=== PATIENT | male | born 1970 | race Caucasian/White ===

== ENCOUNTER 2020-02-24 17:27 | Inpatient (IN) | payer OTHER ==
[2020-02-24 18:41] VITALS: BMI 23.1
--- NOTE | 2020-02-24 18:52 | BHS.RME ---
Substance Use & Tx History - Substance Use History Heroin Substance amount: 6-7 bags Frequency of use: Daily Substance route: Injection (ex: intravenous or skin popping) Date of Last Use: 02/22/20 (Started at 15.) Nicotine Substance amount: 20 Frequency of use: Daily Substance route: Smoking Date of Last Use: 02/24/20 (Started at 15.) Physical/Psych/Mental Status - Behavior Eye Contact: Normal - Cooperativeness Cooperativeness: Cooperative - Thinking Thought Processes: Goal Directed - Physical Health Problems Is patient presently having any pain?: No Does patient presently have any injuries (include location): No Does patient currently have a fever: No COWS - Scale Resting Pulse: 1= [place] 81-100 Sweatin= No chills or Flushing Restless Observation: 0= Sits Still Pupil Size: 2= Moderately Dilated Bone or Joint Aches: 0= None Runny Nose/ Eye Tearin= None GI Upset > 30mins: 0= None Tremor Observation: 0= None Yawning Observation: 0= None Anxiety or Irritability: 0= None Goose Flesh Skin: 0=Smooth Skin COWS Score: 3
--- NOTE | 2020-02-24 19:24 | HP ---
COWS - Scale Resting Pulse: 1= [place] 81-100 Sweatin= No chills or Flushing Restless Observation: 0= Sits Still Pupil Size: 2= Moderately Dilated (Pupils = 5 mm) Bone or Joint Aches: 0= None Runny Nose/ Eye Tearin= None GI Upset > 30mins: 0= None Tremor Observation: 0= None Yawning Observation: 0= None Anxiety or Irritability: 0= None Goose Flesh Skin: 0=Smooth Skin COWS Score: 3 CIWA Score - Admission Criteria OASAS Guidelines: Admission for Medically Managed Detox: Requires at least one of the followin. CIWA greater than 12 2. Seizures within the past 24 hours 3. Delirium tremens within the past 24 hours 4. Hallucinations within the past 24 hours 5. Acute intervention needed for co occurring medical disorder 6. Acute intervention needed for co occurring psychiatric disorder 7. Severe withdrawal that cannot be handled at a lower level of care (continued vomiting, continued diarrhea, abnormal vital signs) requiring intravenous medication and/or fluids 8. Admission ROS [facility] Chief Complaint: "HERE TO STOP USING" Allergies/Adverse Reactions: Allergies Allergy/AdvReac Type Severity Reaction Status Date / Time No Known Allergies Allergy Verified 02/24/20 18:54 History of Present Illness: 49 yo presents seeking detox, but last used 3 days ago and had minimal withdrawal symptoms. Does not meet criteria for detox - will admit to Rehab, after collecting results for Rapid COVID. Denies seizures or blackouts, Last overdose 2 years ago. Substance Use History Heroin Substance amount: 6-7 bags Frequency of use: Daily Substance route: Injection (ex: intravenous) Date of Last Use: 02/22/20 (Started at 15.) Recent use x 1 year. Nicotine Substance amount: 20 Frequency of use: Daily Substance route: Smoking Date of Last Use: 02/24/20 (Started at 15.) PMHx: DM II; MHHx: Depression. On meds - intermittent compliance. Denies thoughts of harming self or others. SHx: Domiciled. SSI. Denies legal issues. Patient Name: Bernardino Ramsey Date: 1970 Address: [place] [address] Sex: Male Rx Written Rx Dispensed Drug Quantity Days Supply Prescriber Name Payment Method Dispenser 03/31/2019 03/31/2019 buprenorphine-naloxone 8-2 mg sl film 21 7 [address] [facility] 03/27/2019 03/27/2019 buprenorphine-naloxone 8-2 mg sl film 15 5 [address] [facility] 03/10/2019 03/10/2019 buprenorphine-naloxone 8-2 mg sl film 21 7 [address] [facility] 03/03/2019 03/03/2019 buprenorphine-naloxone 8-2 mg sl film 21 7 [address] [facility] 02/24/2019 02/24/2019 buprenorphine-naloxone 8-2 mg sl film 21 7 [address] [facility] Exam Limitations: No Limitations - Ebola screening Have you traveled outside of the country in the last 21 days: No (Denies COVID exposure) Have you had contact with anyone from an Ebola affected area: No Have you been sick,other than usual withdrawal symptoms: No Do you have a fever: No - Review of Systems Constitutional: Chills, Changes in sleep (Difficulty falling asleep.), Weight Stable EENT: reports: Blurred Vision, Dental Problems (Missing teeth, No ddental pain.) Respiratory: reports: No Symptoms reported Cardiac: reports: No Symptoms Reported GI: reports: No Symptoms Reported : reports: No Symptoms Reported Musculoskeletal: reports: No Symptoms Reported Integumentary: reports: No Symptoms Reported Neuro: reports: No Symptoms reported Endocrine: reports: No Symptoms Reported Hematology: reports: No Symptoms Reported Psychiatric: reports: Judgement Intact, Mood/Affect Appropiate, Orientated x3, Agitated, Anxious, Depressed ( Denies thoughts of harming self or others.) Patient History - PPD History Previous Implant?: Yes Documented Results: Negative w/o proof Implanted On Prior R Admission?: No PPD to be Administered?: Yes - Smoking Cessation Smoking history: Current every day smoker Have you smoked in the past 12 months: Yes Aproximately how many cigarettes per day: 20 Hx Chewing Tobacco Use: No Initiated information on smoking cessation: Yes 'Breaking Loose' booklet given: 02/24/20 - Substance & Tx. History Hx Alcohol Use: No Hx Substance Use: Yes Substance Use Type: Heroin Hx Substance Use Treatment: Yes (detox, rehab, past suboxone) Admission Physical Exam BHS - Vital Signs Vital Signs: Vital Signs - 24 hr 02/24/20 18:39 Temperature 97.7 F Pulse Rate 81 Respiratory 18 Rate Blood Pressure 117/74 - Physical General Appearance: Yes: Nourished HEENTM: Yes: Hearing grossly Normal, Normocephalic, Normal Voice, KEVIN (Pupils = 5 mm), Pharynx Normal Respiratory: Yes: Lungs Clear, Normal Breath Sounds, No Respiratory Distress Neck: Yes: No masses,lesions,Nodules, Supple Breast: Yes: Breast Exam Deferred Cardiology: Yes: Regular Rhythm, Regular Rate Abdominal: Yes: Normal Bowel Sounds, Non Tender, Flat, Soft Genitourinary: Yes: Within Normal Limits Back: Yes: Normal Inspection Musculoskeletal: Yes: full range of Motion, Gait Steady Extremities: Yes: Normal Capillary Refill, Normal Range of Motion Neurological: Yes: Fully Oriented, Alert, Motor Strength 5/5, Normal Response Integumentary: Yes: Normal Color, Warm, Track Lepe (Track lepe antecubital areas w/o increased warmth or erythema) Lymphatic: Yes: Within Normal Limits - Diagnostic (1) Moderate opioid use disorder, in early remission Current Visit: Yes Status: Acute (2) Nicotine dependence, unspecified, uncomplicated Current Visit: Yes Status: Chronic Qualifiers: Nicotine product type: cigarettes Qualified Code(s): F17.210 - Nicotine dependence, cigarettes, uncomplicated (3) Diabetes mellitus Current Visit: Yes Status: Chronic Qualifiers: Diabetes mellitus type: type 2 Diabetes mellitus rat exterminator insulin use: unspecified fpc insulin use status Diabetes mellitus complication status: without complication Qualified Code(s): E11.9 - Type 2 diabetes mellitus without complications Cleared for Admission [facility] - Detox or Rehab Claeared for Rehab Admission: Yes Urine Drug Screen - Test Device Lot number: [id number] Expiration date: 08/29/21 - Control Is test valid?: Yes - Results Drug screen NEGATIVE: No Urine drug screen results: JING-Cocaine, FEN-Fentanyl, MOP-Opiates Inpatient Rehab Admission - Rehab Decision to Admit Inpatient rehab admission?: Yes - Initial Determination Are CD services needed?: Yes Free of communicable disease: Yes Not in need of hospitalization: Yes - Rehab Admission Criteria Previous failed treatment: Yes Poor recovery environment: Yes Comorbidities: Yes Lacks judgement: No Patient is meeting Inpatient Rehab admission criteria:: Yes
[2020-02-24] MEDS ORDERED: LOPERAMIDE HCL 2 MG CAPSULE PO PRN (22:38)
[2020-02-24] MEDS ORDERED: P-EPHED 60MG/TRIPROLIDI 2.5MG TABLET PO PRN (22:38)
[2020-02-24] MEDS ORDERED: ACETAMINOPHEN 325 MG TABLET (FP) PO PRN (22:38)
[2020-02-24] MEDS ORDERED: MAGNESIUM HYDROX 2400MG/30ML ORAL SUSPENSION 30 ML CUP PO PRN (22:38)
[2020-02-24] MEDS ORDERED: guaiFENesin 200 MG/10 ML 10 ML UNIT-DOSE CUPS PO PRN (22:38)
[2020-02-24] MEDS ORDERED: MAG HYDROX/AL HYDROX/SIMETH 30 ML UNIT-DOSE CUP PO PRN (22:38)
[2020-02-24] MEDS ORDERED: NICOTINE POLACRILEX 2 MG GUM BUC PRN (22:38)
[2020-02-24] MEDS ORDERED: IBUPROFEN 400 MG TABLET (FP) PO PRN (22:38)
[2020-02-24] MEDS ORDERED: MAGNESIUM CITRATE 300 ML BOTTLE PO PRN (22:38)
[2020-02-24] MEDS ORDERED: hydrOXYzine PAMOATE 25 MG CAPSULE (FP) PO PRN (22:38)
[2020-02-25] MEDS: MELATONIN 5 MG TABLETS PO SCH ×2 (00:17→22:11)
[2020-02-25] MEDS ORDERED: INSULIN SLIDING SCALE (NOVOLOG) 1 VIAL SQ SCH (07:00)
[2020-02-25] MEDS ORDERED: cloNIDine HCL 0.1 MG TABLET PO ONE (07:22)
[2020-02-25] MEDS ORDERED: cloNIDine HCL 0.1 MG TABLET PO PRN (07:24)
--- NOTE | 2020-02-25 07:25 | PN ---
S Progress Note Note: CLONIDINE O.1 MG PO NOW THEN Q6H PRN VISTARIL 50 MG PO NOW THEN PRN Q8 H FOR DELAYED OPI WITHDRAWAL SX'S TIGAN 200 MG IM Q8H PRN Vital Signs Temperature 97.7 F 02/25/20 06:53 Pulse Rate 66 02/25/20 06:53 Respiratory Rate 18 02/25/20 06:53 Blood Pressure 140/76 02/25/20 06:53 O2 Sat by Pulse Oximetry (%) 96 02/25/20 06:53
[2020-02-25] MEDS: TRIMETHOBENZAMIDE HCL 200MG/2ML INJ IM PRN ×2 (07:48→17:16)
[2020-02-25] MEDS: INSULIN (LEVEMIR) 100 UNITS/ML UNITS SQ SCH (07:50)
[2020-02-25] MEDS: INSULIN SLIDING SCALE (NOVOLOG) 1 VIAL SQ SCH ×4 (07:53→22:13)
[2020-02-25] MEDS: metFORMIN HCL 500 MG TABLET (FP) PO SCH ×2 (10:33→16:47)
[2020-02-25] MEDS: hydrOXYzine PAMOATE 50 MG CAPSULE (FP) PO ONE ×2 (10:33→22:07)
[2020-02-25] MEDS: LISINOPRIL 5 MG TABLET PO SCH (10:33)
[2020-02-25] MEDS: PRENATAL VITAMINS W/ FOLIC ACID TABLET (FP) PO SCH (10:34)
[2020-02-25] MEDS: NICOTINE 21 MG/24 HOURS TOPICAL PATCH TD SCH (10:34)
[2020-02-25] MEDS ORDERED: metFORMIN HCL 500 MG TABLET (FP) ONE (16:39)
[2020-02-25] MEDS ORDERED: hydrOXYzine PAMOATE 50 MG CAPSULE (FP) ONE (16:48)
[2020-02-25] MEDS ORDERED: TRIMETHOBENZAMIDE HCL 200MG/2ML INJ IM ONE (17:07)
--- NOTE | 2020-02-25 21:41 | EKG ---
Test Reason : Blood Pressure : / mmHG Vent. Rate : 058 BPM Atrial Rate : 058 BPM P-R Int : 126 ms QRS Dur : 082 ms QT Int : 484 ms P-R-T Axes : -26 044 043 degrees QTc Int : 475 ms SINUS BRADYCARDIA OTHERWISE NORMAL ECG NO PREVIOUS ECGS AVAILABLE Confirmed by SHAWNA KWOK MD ([id number]) on 02/25/2020 9:41:04 PM Referred By: Confirmed By:SHAWNA KWOK MD
[2020-02-25] MEDS: THIAMINE HCL 100 MG TABLET (FP) PO SCH (22:20)
[2020-02-26] MEDS ORDERED: INSULIN (LEVEMIR) 100 UNITS/ML UNITS SQ ONE (07:03)
[2020-02-26] MEDS ORDERED: metFORMIN HCL 500 MG TABLET (FP) ONE (07:03)
[2020-02-26] MEDS ORDERED: LISINOPRIL 5 MG TABLET ONE (07:04)
[2020-02-26] MEDS: LISINOPRIL 5 MG TABLET PO SCH (07:07)
[2020-02-26] MEDS: INSULIN (LEVEMIR) 100 UNITS/ML UNITS SQ SCH (07:07)
[2020-02-26] MEDS: metFORMIN HCL 500 MG TABLET (FP) PO SCH ×2 (07:07→17:45)
[2020-02-26] MEDS ORDERED: INSULIN (NOVOLOG) ASPART 100 UNITS/ML 10ML VIAL ONE (07:11)
[2020-02-26] MEDS: INSULIN SLIDING SCALE (NOVOLOG) 1 VIAL SQ SCH ×2 (07:16→11:42)
[2020-02-26] MEDS: PRENATAL VITAMINS W/ FOLIC ACID TABLET (FP) PO SCH (09:47)
[2020-02-26] MEDS: NICOTINE 21 MG/24 HOURS TOPICAL PATCH TD SCH (09:47)
[2020-02-26] MEDS ORDERED: ONDANSETRON *ODT* 4 MG TABLET SL ONE (11:25)
--- NOTE | 2020-02-26 11:29 | PN ---
[facility] Progress Note Note: Pt is a 49 y/o male with a hx of VAUGHN-Heroin admitted to rehab through [facility] on 02/24/20. Pt c/o withdrawal sx-nausea/vomiting, chills. As per I-STOP online document in H/P, pt was on Suboxone 8mg/2mg sl. Pt was seen in bed in position, declined to speak to this commercial underwriter and her nurse Jess Chapman when both went to encourage pt to do BGM which he refused to do at 11:30 a.m today. Pt insisted on not doing it. This commercial underwriter called [facility] at [phone] listed in pt's chart to verify pt's medications. Pharmacist reports that pt last visited with them in March 2019 and verified last medications- suboxone(see I-STOP), Basaglar, Lisinopril, Metformin januvia on their system as same as currently being given. Home Medication List Medication Instructions Recorded Confirmed Type Buprenorphine/Naloxone [Suboxone 8 1 each SL TID 02/24/20 02/24/20 History mg/2Mg Sl Film -] Insulin Glargine,Hum.rec.anlog 12 unit SQ AM 02/24/20 02/24/20 History [Basaglar Kwikpen U-100] Insulin Lispro [Admelog Solostar] 12 unit SQ TID 02/24/20 02/24/20 History Lisinopril 5 mg PO AM 02/24/20 02/24/20 History Metformin HCl [Glucophage] 1,000 mg PO BID 02/24/20 02/24/20 History Multivit,Calc,Mins/Iron/Folic 1 tab PO AM 02/24/20 02/24/20 History [Therapeutic-M Tablet] Multivitamin 1 each PO AM 02/24/20 02/24/20 History Quetiapine Fumarate [Seroquel -] 400 mg PO HS 02/24/20 02/24/20 History Sertraline HCl [Zoloft] 200 mg PO AM 02/24/20 02/24/20 History Sitagliptin Phosphate [Januvia] 100 mg PO ONCE 02/24/20 02/24/20 History Patient Name: Bernardino Ramsey Date: 1970 Address: [place] [address] Sex: Male Rx Written Rx Dispensed Drug Quantity Days Supply Prescriber Name Payment Method Dispenser 03/31/2019 03/31/2019 buprenorphine-naloxone 8-2 mg sl film 21 7 Jorge Luis Juarez MD [facility] 03/27/2019 03/27/2019 buprenorphine-naloxone 8-2 mg sl film 15 5 Jorge Luis Juarez MD [facility] 03/10/2019 03/10/2019 buprenorphine-naloxone 8-2 mg sl film 21 7 Jorge Luis Juarez MD [facility] 03/03/2019 03/03/2019 buprenorphine-naloxone 8-2 mg sl film 21 7 Jorge Luis Juarez MD [facility] 02/24/2019 02/24/2019 buprenorphine-naloxone 8-2 mg sl film 21 7 Jorge Luis Juarez MD [facility] Below is U-tox on admission on 02/24/20: Drug screen NEGATIVE: No Urine drug screen results: JING-Cocaine, FEN-Fentanyl, MOP-Opiates PMHx:DM(On multiple diabetic medications) Psych Hx:depression Vital Signs - 24 hr 02/25/20 02/26/20 14:26 07:01 Temperature 98.4 F Pulse Rate 53 L Respiratory 18 Rate Blood Pressure 131/75 O2 Sat by Pulse 98 98 Oximetry (%) Laboratory Tests 02/24/20 02/24/20 02/25/20 20:53 21:48 12:45 POC Glucometer 220 320 SARS-CoV-2 (PCR) Negative 02/25/20 02/25/20 02/26/20 16:45 22:04 07:06 POC Glucometer 318 307 304 SARS-CoV-2 (PCR) Alert o x 3 nad oob ambulating with steady gait(but mostly in bed this shift) Rehab pt w/s loss of appetite VAUGHN-Opiates Increase po fluids as tolerated -Gingerale and Glucerna as directed monitor pt and maintain safety follow up with counselor for CD aftercare planning Follow up with pt again when he is ready to talk to see if pt wants to be re started on suboxone MAT. Admission Labs re-ordered today for tomorrow(original order seen cancelled in the system for an unknown reason). Pt refused BGM x 2 @ 11:30am and 4:30pm today/poor po food intake-Decreased Metformin 500 mg po BIDAC. Addendum:Spoke with pt at end of shift and encouraged to cooperate with nurses with BGM monitoring. D/w pt about Suboxone restart and pt is interested. will follow up in am.
[2020-02-26] MEDS ORDERED: BUPRENORPHINE/NALOXONE 8 MG/2 MG FILM PACKET SL ONE (18:55)
--- NOTE | 2020-02-26 19:05 | PN ---
BHS Progress Note Note: 49 y.o. male w/ opioid dependence , reports nausea, vomiting , chills , abdominal cramps , anxiety . COWS = 9 Reports prior participation > 1 yr ago in Buprenorphine program , planning to return after d/c from rehab . Vital Signs - 24 hr 02/26/20 02/26/20 07:01 17:10 Temperature 98.4 F 98.2 F Pulse Rate 53 L 58 L Respiratory 18 18 Rate Blood Pressure 131/75 125/70 O2 Sat by Pulse 98 98 Oximetry (%) pt irritable, in bed in position , extraneous LE movement noted . P : Discussed methadone detox vs maintenance . Pt agreeable to start Buprenorphine Suboxone 8/2 mg x once Tigan i.m. x once Nursing to monitor for withdrawal symptoms and notify medical of any changes .
[2020-02-26] MEDS: TRIMETHOBENZAMIDE HCL 200MG/2ML INJ IM PRN (19:14)
[2020-02-26] MEDS: THIAMINE HCL 100 MG TABLET (FP) PO SCH (21:51)
[2020-02-26] MEDS: MELATONIN 5 MG TABLETS PO SCH (21:51)
[2020-02-26] MEDS: METHOCARBAMOL 500 MG TABLET PO PRN (21:53)
[2020-02-26 23:31] LABS: PH,URINE 5.5 (5.0-8.0); URINE APPEARANCE Cloudy; URINE BILIRUBIN Negative (NEGATIVE); URINE COLOR Pink; URINE GLUCOSE (UA) 3+ (NEGATIVE); URINE KETONE Trace (NEGATIVE); URINE LEUK ESTERASE Negative (NEGATIVE); URINE NITRITE Negative (NEGATIVE); URINE PROTEIN Negative (NEGATIVE); URINE UROBILINOGEN 0.2 mg/dL (0.2-1.0)
[2020-02-27] MEDS: metFORMIN HCL 500 MG TABLET (FP) PO SCH ×3 (07:05→16:31)
[2020-02-27] MEDS: LISINOPRIL 5 MG TABLET PO SCH (07:05)
[2020-02-27] MEDS: TRIMETHOBENZAMIDE HCL 200MG/2ML INJ IM PRN (07:34)
--- NOTE | 2020-02-27 10:13 | PN ---
BHS COWS - Scale Resting Pulse: 1= [place] 81-100 Sweatin= Chills/Flushing Restless Observation: 3= Extraneous Movement Pupil Size: 0= Normal to Room Light Bone or Joint Aches: 2= Severe Diffuse Aches Runny Nose/ Eye Tearin= None GI Upset > 30mins: 2= Nausea/Diarrhea (Nausea, no diarrhea, vomiting improved within last 24 hrs.) Tremor Observation of Outstretched Hands: 1= Tremor Ione, Not Seen Yawning Observation: 0= None Anxiety or Irritability: 2=Irritable/Anxious Goose Flesh Skin: 0=Smooth Skin COWS Score: 12 S Progress Note (SOAP) Subjective: Pt was seen yesterday by covering provider Dr. Ochoa and Suboxone 2mg/0.1mg was given once. Pt was evaluated today and he reports he is "a little bit better today". Pt was able to hold conversation today but still agitated and demanded suboxone BLESSING first encounter this shift. Pt will meet with his counselor Raisa for aftercare planning this afternoon. Objective: 02/27/20 12:42 Vital Signs - 24 hr 02/26/20 02/26/20 02/26/20 17:10 19:31 23:58 Temperature 98.2 F Pulse Rate 58 L 95 H Respiratory 18 Rate Blood Pressure 125/70 115/76 O2 Sat by Pulse 98 98 Oximetry (%) 02/27/20 06:43 Temperature 98.2 F Pulse Rate 94 H Respiratory 18 Rate Blood Pressure 114/89 O2 Sat by Pulse 96 Oximetry (%) Laboratory Tests 02/24/20 02/24/20 02/24/20 18:05 20:53 21:48 WBC RBC Hgb Hct MCV MCH MCHC RDW Plt Count MPV Sickle Cell Screen Sodium Potassium Chloride Carbon Dioxide Anion Gap BUN Creatinine Est GFR (CKD-EPI)AfAm Est GFR (CKD-EPI)NonAf POC Glucometer 220 Random Glucose Calcium Total Bilirubin AST ALT Alkaline Phosphatase Total Protein Albumin Urine Color [place] Urine Appearance Cloudy Urine pH 5.5 Ur Specific [place] 1.025 Urine Protein Negative Urine Glucose (UA) 3+ H Urine Ketones Trace Urine Blood Negative Urine Nitrite Negative Urine Bilirubin Negative Urine Urobilinogen 0.2 Ur Leukocyte Esterase Negative Syphilis Serology SARS-CoV-2 (PCR) Negative 02/25/20 02/25/20 02/25/20 12:45 16:45 22:04 WBC RBC Hgb Hct MCV MCH MCHC RDW Plt Count MPV Sickle Cell Screen Sodium Potassium Chloride Carbon Dioxide Anion Gap BUN Creatinine Est GFR (CKD-EPI)AfAm Est GFR (CKD-EPI)NonAf POC Glucometer 320 318 307 Random Glucose Calcium Total Bilirubin AST ALT Alkaline Phosphatase Total Protein Albumin Urine Color Urine Appearance Urine pH Ur Specific [place] Urine Protein Urine Glucose (UA) Urine Ketones Urine Blood Urine Nitrite Urine Bilirubin Urine Urobilinogen Ur Leukocyte Esterase Syphilis Serology SARS-CoV-2 (PCR) 02/26/20 02/26/20 02/27/20 07:06 18:41 07:00 WBC 15.0 H RBC 5.18 Hgb 15.8 Hct 45.1 MCV 87.2 MCH 30.5 MCHC 34.9 RDW 12.8 Plt Count 236 MPV 10.0 Sickle Cell Screen Negative Sodium Potassium Chloride Carbon Dioxide Anion Gap BUN Creatinine Est GFR (CKD-EPI)AfAm Est GFR (CKD-EPI)NonAf POC Glucometer 304 307 Random Glucose Calcium Total Bilirubin AST ALT Alkaline Phosphatase Total Protein Albumin Urine Color Urine Appearance Urine pH Ur Specific [place] Urine Protein Urine Glucose (UA) Urine Ketones Urine Blood Urine Nitrite Urine Bilirubin Urine Urobilinogen Ur Leukocyte Esterase Syphilis Serology SARS-CoV-2 (PCR) 02/27/20 02/27/20 02/27/20 07:00 07:00 07:03 WBC RBC Hgb Hct MCV MCH MCHC RDW Plt Count MPV Sickle Cell Screen Sodium 135 L Potassium 3.7 Chloride 95 L Carbon Dioxide 31 Anion Gap 9 BUN 23.0 H Creatinine 1.0 Est GFR (CKD-EPI)AfAm 101.26 Est GFR (CKD-EPI)NonAf 87.37 POC Glucometer 238 Random Glucose 222 H Calcium 9.7 Total Bilirubin 1.2 H AST 73 H ALT 91 H Alkaline Phosphatase 93 Total Protein 7.5 Albumin 3.3 L Urine Color Urine Appearance Urine pH Ur Specific [place] Urine Protein Urine Glucose (UA) Urine Ketones Urine Blood Urine Nitrite Urine Bilirubin Urine Urobilinogen Ur Leukocyte Esterase Syphilis Serology Non-reactive SARS-CoV-2 (PCR) 02/27/20 11:11 WBC RBC Hgb Hct MCV MCH MCHC RDW Plt Count MPV Sickle Cell Screen Sodium Potassium Chloride Carbon Dioxide Anion Gap BUN Creatinine Est GFR (CKD-EPI)AfAm Est GFR (CKD-EPI)NonAf POC Glucometer 246 Random Glucose Calcium Total Bilirubin AST ALT Alkaline Phosphatase Total Protein Albumin Urine Color Urine Appearance Urine pH Ur Specific [place] Urine Protein Urine Glucose (UA) Urine Ketones Urine Blood Urine Nitrite Urine Bilirubin Urine Urobilinogen Ur Leukocyte Esterase Syphilis Serology SARS-CoV-2 (PCR) Assessment: 02/27/20 12:42 VAUGHN Suboxone MAT Plan: D/W pt will continue with Suboxone 4mg/1mg sl tid and adjust to previous dose of 8 mg/2 mg sl tid if needed. increase po fluids encourage pt with adequate food intake
[2020-02-27] MEDS ORDERED: BUPRENORPHINE/NALOXONE 4 MG/1 MG FILM PACKET SL SCH (10:15)
[2020-02-27 10:26] LABS: HEMATOCRIT 45.1 % (35.4-49); HEMOGLOBIN 15.8 GM/dL (11.7-16.9); MCH 30.5 pg (25.7-33.7); MCHC 34.9 g/dl (32.0-35.9); MEAN CELL VOLUME 87.2 fl (80-96); PLATELET COUNT 236 K/MM3 (134-434); RBC 5.18 M/mm3 (4.00-5.60); RDW 12.8 % (11.9-15.9)
[2020-02-27 10:32] LABS: ALBUMIN 3.3 g/dl (3.4-5.0); CALCIUM 9.7 mg/dL (8.5-10.1); POTASSIUM 3.7 mmol/L (3.5-5.1); TOT PROT 7.5 g/dl (6.4-8.2)
[2020-02-27 10:34] LABS: BILIRUBIN,TOTAL 1.2 mg/dL (0.2-1)
[2020-02-27] MEDS: NICOTINE 21 MG/24 HOURS TOPICAL PATCH TD SCH (11:08)
[2020-02-27] MEDS: PRENATAL VITAMINS W/ FOLIC ACID TABLET (FP) PO SCH (11:08)
[2020-02-27 12:12] LABS: SICKLE CELL SCREEN NEGATIVE (NEGATIVE)
[2020-02-27] MEDS: BUPRENORPHINE/NALOXONE 4 MG/1 MG FILM PACKET SL SCH ×2 (13:18→17:39)
[2020-02-27] MEDS: MELATONIN 5 MG TABLETS PO SCH (21:11)
[2020-02-27] MEDS: INSULIN (LEVEMIR) 100 UNITS/ML UNITS SQ SCH (21:14)
[2020-02-27] MEDS: THIAMINE HCL 100 MG TABLET (FP) PO SCH (21:15)
[2020-02-28] MEDS: hydrOXYzine PAMOATE 25 MG CAPSULE (FP) PO PRN ×3 (03:17→21:19)
[2020-02-28] MEDS: LISINOPRIL 5 MG TABLET PO SCH (06:18)
[2020-02-28] MEDS: BUPRENORPHINE/NALOXONE 4 MG/1 MG FILM PACKET SL SCH ×3 (06:18→17:59)
[2020-02-28] MEDS: metFORMIN HCL 500 MG TABLET (FP) PO SCH ×2 (06:18→17:50)
[2020-02-28] MEDS: NICOTINE 21 MG/24 HOURS TOPICAL PATCH TD SCH (10:15)
[2020-02-28] MEDS: PRENATAL VITAMINS W/ FOLIC ACID TABLET (FP) PO SCH (10:15)
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
[2020-02-28] MEDS: QUEtiapine FUMARATE 100 MG TABLET (FP) PO SCH (21:18)
[2020-02-28] MEDS: MELATONIN 5 MG TABLETS PO SCH (21:19)
[2020-02-28] MEDS: THIAMINE HCL 100 MG TABLET (FP) PO SCH (21:19)
[2020-02-28] MEDS: METHOCARBAMOL 500 MG TABLET PO PRN (21:19)
[2020-02-28] MEDS: INSULIN (LEVEMIR) 100 UNITS/ML UNITS SQ SCH (21:21)
[2020-02-29] MEDS: BUPRENORPHINE/NALOXONE 4 MG/1 MG FILM PACKET SL SCH ×3 (08:30→17:50)
[2020-02-29] MEDS: metFORMIN HCL 500 MG TABLET (FP) PO SCH ×2 (08:31→16:53)
[2020-02-29] MEDS: LISINOPRIL 5 MG TABLET PO SCH (08:31)
[2020-02-29] MEDS: PRENATAL VITAMINS W/ FOLIC ACID TABLET (FP) PO SCH (10:17)
[2020-02-29] MEDS: NICOTINE 21 MG/24 HOURS TOPICAL PATCH TD SCH (10:18)
[2020-02-29] MEDS: THIAMINE HCL 100 MG TABLET (FP) PO SCH (21:39)
[2020-02-29] MEDS: hydrOXYzine PAMOATE 25 MG CAPSULE (FP) PO PRN (21:39)
[2020-02-29] MEDS: METHOCARBAMOL 500 MG TABLET PO PRN (21:40)
[2020-02-29] MEDS: MELATONIN 5 MG TABLETS PO SCH (21:40)
[2020-02-29] MEDS: QUEtiapine FUMARATE 100 MG TABLET (FP) PO SCH (21:40)
[2020-02-29] MEDS: INSULIN (LEVEMIR) 100 UNITS/ML UNITS SQ SCH (21:59)
[2020-03-01] MEDS: metFORMIN HCL 500 MG TABLET (FP) PO SCH ×2 (06:20→16:54)
[2020-03-01] MEDS: BUPRENORPHINE/NALOXONE 4 MG/1 MG FILM PACKET SL SCH ×3 (06:21→18:22)
[2020-03-01] MEDS: LISINOPRIL 5 MG TABLET PO SCH (06:21)
[2020-03-01] MEDS: PRENATAL VITAMINS W/ FOLIC ACID TABLET (FP) PO SCH (10:00)
[2020-03-01] MEDS: NICOTINE 21 MG/24 HOURS TOPICAL PATCH TD SCH (10:00)
[2020-03-01] MEDS ORDERED: COLLOIDAL OATMEAL 1 BAR EACH TP PRN (10:05)
[2020-03-01] MEDS ORDERED: INSULIN (NOVOLOG) ASPART 100 UNITS/ML 10ML VIAL SQ ONE (11:56)
[2020-03-01] MEDS ORDERED: INSULIN (NOVOLOG) ASPART 100 UNITS/ML 10ML VIAL ONE (12:14)
[2020-03-01] MEDS: QUEtiapine FUMARATE 100 MG TABLET (FP) PO SCH (21:05)
[2020-03-01] MEDS: MELATONIN 5 MG TABLETS PO SCH (21:05)
[2020-03-01] MEDS: hydrOXYzine PAMOATE 25 MG CAPSULE (FP) PO PRN (21:05)
[2020-03-01] MEDS: THIAMINE HCL 100 MG TABLET (FP) PO SCH (21:06)
[2020-03-01] MEDS ORDERED: INSULIN (LEVEMIR) 100 UNITS/ML UNITS SQ SCH (22:00)
[2020-03-02] MEDS: BUPRENORPHINE/NALOXONE 4 MG/1 MG FILM PACKET SL SCH ×2 (06:05→13:28)
[2020-03-02] MEDS: metFORMIN HCL 500 MG TABLET (FP) PO SCH (06:05)
[2020-03-02] MEDS: LISINOPRIL 5 MG TABLET PO SCH (06:05)
[2020-03-02 06:44] VITALS: BP 99/60; PULSE 80; TEMP 98
[2020-03-02] MEDS: PRENATAL VITAMINS W/ FOLIC ACID TABLET (FP) PO SCH (09:38)
[2020-03-02] MEDS: NICOTINE 21 MG/24 HOURS TOPICAL PATCH TD SCH (09:38)
--- NOTE | 2020-03-02 11:23 | PN ---
S Progress Note Note: bgm 335,will give insulin coverage sliding scale,bgm [facility]
[2020-03-02] MEDS ORDERED: INSULIN (NOVOLOG) ASPART 100 UNITS/ML 10ML VIAL SQ SCH (11:45)
[2020-03-02] MEDS ORDERED: INSULIN (NOVOLOG) ASPART 100 UNITS/ML 10ML VIAL ONE (11:53)
--- NOTE | 2020-03-02 13:26 | DS ---
[facility] Detox Discharge Summary Admission Date: 02/24/20 - Physical Exam Results Vital Signs: Vital Signs Temperature 98.0 F 03/02/20 05:37 Pulse Rate 80 03/02/20 05:37 Respiratory Rate 18 03/02/20 05:37 Blood Pressure 99/60 03/02/20 05:37 O2 Sat by Pulse Oximetry (%) 96 03/02/20 12:16 - Medication Discharge Medications: Ambulatory Orders Buprenorphine/Naloxone [Suboxone 8 mg/2Mg Sl Film -] 1 each SL TID 02/24/20 Insulin Glargine,Hum.rec.anlog [Basaglar Kwikpen U-100] 12 unit SQ AM 02/24/20 Insulin Lispro [Admelog Solostar] 12 unit SQ TID 02/24/20 Lisinopril 5 mg PO AM 02/24/20 Metformin HCl [Glucophage] 1,000 mg PO BID 02/24/20 Multivit,Calc,Mins/Iron/Folic [Therapeutic-M Tablet] 1 tab PO AM 02/24/20 Multivitamin 1 each PO AM 02/24/20 Quetiapine Fumarate [Seroquel -] 400 mg PO HS 02/24/20 Sertraline HCl [Zoloft] 200 mg PO AM 02/24/20 Sitagliptin Phosphate [Januvia] 100 mg PO ONCE 02/24/20
--- NOTE | 2020-03-03 18:50 | DS ---
[facility] Rehab Discharge Summary - [facility] Rehab Discharge Summary Admission Date: 02/24/20 Discharge Date: 03/02/20 - History Present History: Opioid dependence Pertinent Past History: iddm hepatitis c - Discharge Physical Exam Vital Signs: Vital Signs Temperature 98.0 F 03/02/20 05:37 Pulse Rate 80 03/02/20 05:37 Respiratory Rate 18 03/02/20 05:37 Blood Pressure 99/60 03/02/20 05:37 O2 Sat by Pulse Oximetry (%) 96 03/02/20 12:16 - Medication Discharge Medications: Ambulatory Orders Buprenorphine/Naloxone [Suboxone 8 mg/2Mg Sl Film -] 1 each SL TID 02/24/20 Insulin Glargine,Hum.rec.anlog [Basaglar Kwikpen U-100] 12 unit SQ AM 02/24/20 Insulin Lispro [Admelog Solostar] 12 unit SQ TID 02/24/20 Lisinopril 5 mg PO AM 02/24/20 Metformin HCl [Glucophage] 1,000 mg PO BID 02/24/20 Multivit,Calc,Mins/Iron/Folic [Therapeutic-M Tablet] 1 tab PO AM 02/24/20 Multivitamin 1 each PO AM 02/24/20 Quetiapine Fumarate [Seroquel -] 400 mg PO HS 02/24/20 Sertraline HCl [Zoloft] 200 mg PO AM 02/24/20 Sitagliptin Phosphate [Januvia] 100 mg PO ONCE 02/24/20 - Discharge Instructions Diet, activity, other medical instructions: Diet: Activity: Other medical instructions:
--- NOTE | 2020-03-04 15:13 | PN ---
S Progress Note Note: addendum suboxone 4mg/1mg sl film 4mg/1mg tid for 7days total number of 21,send to [facility] ,patient has appointment with [facility] on 03/12/20 at 1.30 pm for continue suboxone maintenance
== END 2020-03-02 13:35 | disposition home or self-care (01) | DRG 773 ==
LOC: YASAS 17:27 → Y5N 22:44
PROVIDERS: ADMIT Allergy & Immunology; ATTEND Allergy & Immunology
PROC: HZ2ZZZZ Detoxification Services for Substance Abuse Treatment (ICD-10-PCS; principal; 2020-02-24)
DX: F11.23 Opioid dependence with withdrawal (principal); F17.210 Nicotine dependence, cigarettes, uncomplicated; F19.282 Other psychoactive substance dependence with psychoactive substance-induced sleep disorder; F19.24 Other psychoactive substance dependence with psychoactive substance-induced mood disorder; F25.9 Schizoaffective disorder, unspecified; F32.9 Major depressive disorder, single episode, unspecified; I10 Essential (primary) hypertension; E11.9 Type 2 diabetes mellitus without complications; Z79.4 Long term (current) use of insulin; B18.2 Chronic viral hepatitis C; Z62.810 Personal history of physical and sexual abuse in childhood
CPT/HCPCS: 36415; 80053; 81003; 82962; 85027; 85660; 86780; 93005; 93010; J0735; Q0162; U0003